=== PATIENT | male | born 1990 | race Caucasian/White ===

== ENCOUNTER 2018-02-10 07:36 | Emergency (ER) | payer SELFPAY ==
--- NOTE | 2018-02-10 08:41 | RAD ---
RIGHT WRIST THREE VIEWS: History: Injury. Comparison: None. FINDINGS: No acute fracture or malalignment. Soft tissues are unremarkable. IMPRESSION: No acute fracture or malalignment. POS: [facility]
== END 2018-02-10 08:16 | disposition home or self-care (01) ==
LOC: SCSER 07:36
DX: S63.501A Unspecified sprain of right wrist, initial encounter (principal); X50.9XXA Other and unspecified overexertion or strenuous movements or postures, initial encounter